=== PATIENT | male | born 1960 | race Caucasian/White ===

== ENCOUNTER 2017-01-18 08:15 | Emergency (ER) | payer OTHER ==
[2017-01-18] MEDS ORDERED: Sodium Chloride 0.9% 1,000 ML PRIMARY IV ONE (08:49)
[2017-01-18] MEDS ORDERED: ONDANSETRON 4 MG/2 ML VIAL IVP ONE (08:49)
[2017-01-18 09:03] LABS: BASOPHILS # (AUTO) 0.03 10*3/UL; BASOPHILS % (AUTO) 0.4 % (0-1); EOSINOPHILS # (AUTO) 0.09 10*3/UL; EOSINOPHILS % (AUTO) 1.3 % (0-8); HEMATOCRIT 50.2 % (42.0-52.0); HEMOGLOBIN 16.8 g/dL (14.0-18.0); MEAN CORPUSCULAR HEMOGLOBIN 27.9 PG (27-31); MEAN CORPUSCULAR HGB CONC 33.5 g/dL (33-37); MEAN CORPUSCULAR VOLUME 83.3 FL (80-90); MEAN PLATELET VOLUME 9.8 FL (7.4-12.2); MONOCYTES # (AUTO) 0.77 10*3/UL (0.3-0.8); MONOCYTES % (AUTO) 11.3 % (5-15); NEUTROPHILS # (AUTO) 4.71 10*3/UL; NEUTROPHILS % (AUTO) 69.1 % (50-80); RED BLOOD COUNT 6.03 10^6/uL (4.70-6.10)
[2017-01-18] MEDS ORDERED: MORPHINE SULFATE 4 MG/1 ML IVP ONE (09:05)
[2017-01-18 09:09] LABS: PLATELET MORPHOLOGY COMMENT NORMAL MORPHOLOGY (NORM); RBC MORPHOLOGY COMMENT NORMAL MORPHOLOGY (NORM); WBC MORPHOLOGY COMMENT NORMAL MORPHOLOGY (NORM)
--- NOTE | 2017-01-18 09:11 | PDOC ---
Nausea/Vomiting/Diarrhea HPI - General Chief Complaint: Nausea / Vomiting / Diarrhea Stated Complaint: ADB/ DIARRHEA Date Seen by Provider: 01/18/17 Time Seen by Provider: 09:06 Source: POSITIVE: Patient, Spouse Exam Limitations: POSITIVE: No limitations Nurse's Notes Reviewed & Considered: Yes - History of Present Illness Initial Comments: This very pleasant 56-year-old male comes in today with chief complaint of nausea vomiting and diarrhea. Patient with history of ulcerative colitis developed vomiting and diarrhea over the weekend. 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 He's had fevers which are subjective in nature, significant chills, and sweats. In addition he is complaining of headache and myalgias. He denies any sore throat, no chest pain or shortness of breath, no hematuria or dysuria. He states his symptoms began after he pain at the ceiling of his son's house. This is more exercise than he is used to. Body Location Affected: REPORTS: Head, Abdomen Timing: REPORTS: Abrupt Duration: <1 week Severity: Moderate Quality: REPORTS: Cramping, "Pain", Throbbing, Tenderness Abdominal Pain Onset Location: REPORTS: Generalized abdomen Abdominal Pain Radiation: REPORTS: Epigastric, Periumbilical Context: REPORTS: Activity Modifying Factors: improves with: Nothing Associated Symptoms: REPORTS: Frequent Vomiting, Diarrhea, Abdominal Pain, Cramping, Epigastric Pain, Periumbilical Pain Similar Symptoms Previously: Yes Recent Care Received: REPORTS: Denies Any Prior Injuries Related to Current Complaint?: No - Patient Home Medications Home Medications: Home Medications Acetaminophen 325 mg PO QID PRN 01/18/17 Aspirin 81 mg PO DAILY 01/18/17 Atorvastatin Calcium 40 mg PO BEDTIME 01/18/17 Gabapentin 300 mg PO TID 01/18/17 Hydroxyzine HCl 50 mg PO BID 01/18/17 Lisinopril 10 mg PO DAILY 01/18/17 Mesalamine [Apriso] 0.375 gm PO QID 01/18/17 Metoprolol Tartrate 12.5 mg PO BID 01/18/17 Pantoprazole Sodium [Protonix] 40 mg PO DAILY 01/18/17 Trazodone HCl 100 mg PO BEDTIME PRN 01/18/17 - Patient Allergies Allergies/Adverse Reactions: Allergies Allergy/AdvReac Type Severity Reaction Status Date / Time No Known Allergies Allergy Verified 01/18/17 08:30 ROS - Limitations ROS Limitations: No Limitations Constitution: REPORTS: Chills, Fever, Diaphoresis, Weakness Cardiovascular: REPORTS: Denies Cardiac Symptoms Respiratory: REPORTS: Denies Resp Symptoms Neurological: REPORTS: Headache Gastrointestinal: REPORTS: Abdominal Pain, Nausea, Vomitting, Diarrhea, Black Stools Endocrine: REPORTS: Fatigue Musculoskeletal: REPORTS: Muscle Aches Genitourinary: REPORTS: Denies Symptoms Eyes: REPORTS: Denies Symptoms ENT: REPORTS: Denies Symptoms Skin: REPORTS: Denies Skin Symptoms Lympathic: REPORTS: Denies Lympathic Symptoms Immunologic: POSITIVE: Denies Symptoms Psychiatric: POSITIVE: Denies Psych Symptoms Nausea/Vomiting/Diarrhea Exam - General Appearance General Appearance: POSITIVE: Alert, Cooperative, No Acute Distress, No Evidence of Trauma - HEENT HEENT: POSITIVE: Head Inspection Nml, Eyes Inspection Nml, Ears Inspection Nml, Nose Inspection Nml, Oral/Dental Inspect. Nml, Pharynx Inspect. Nml, PERRL, EOMI - Neck Neck: POSITIVE: Supple, Normal Inspection, Non Tender - Respiratory Respiratory: POSITIVE: No Respiratory Distress, Breath Sounds Normal, Chest Non- Tender - Cardiovascular Cardiovascular: POSITIVE: Regular Rate and Rhythm, Heart Sounds Normal, Equal Pulses, Strong Pulses - Chest Chest: POSITIVE: Non Tender - Abdomen Abdomen: Soft: (All Quadrants), No Splenomegaly: (All Quadrants), No Hepatomegaly: (All Quadrants), No Guarding: (All Quadrants), No Rebound: (All Quadrants), No Palpable Pulse: (All Quadrants), No Palpabale Mass: (All Quadrants), No Rigidity: (All Quadrants), Tenderness Noted: (LUQ), (RUQ), Hyperactive Bowel Sounds: (All Quadrants) - Back Back: POSITIVE: Normal Inspection - Skin Skin: POSITIVE: Intact, Normal For Race, Warm, Dry, No Rash - Extremities Extremity: Non-Tender: (All Extremities), Normal ROM: (All Extremities), Normal Inspection: (All Extremities) N/V/D Progress - Results Reviewed by me Xrays/CTs/US Reviewed by me: Yes Discussed with Radiologist: Yes Lab Results Reviewed: Yes Lab Results:: Laboratory Results 01/18/17 01/18/17 01/18/17 Range/Units 08:30 08:49 09:27 WBC 6.82 (4.8-10.8) 10^3/uL RBC 6.03 (4.70-6.10) 10^6/uL Hgb 16.8 (14.0-18.0) g/dL Hct 50.2 (42.0-52.0) % MCV 83.3 (80-90) FL MCH 27.9 (27-31) PG MCHC 33.5 (33-37) g/dL RDW Std Deviation 44.8 (39-50) fL RDW Coeff of [place] 14.8 H (11.5-14.5) % Plt Count 252 (140-350) 10*3/uL MPV 9.8 (7.4-12.2) FL Immature Gran % (Auto) 0.3 (0-5) % Neut % (Auto) 69.1 (50-80) % Lymph % (Auto) 17.6 (10-50) % [place] % (Auto) 11.3 (5-15) % Eos % (Auto) 1.3 (0-8) % Baso % (Auto) 0.4 (0-1) % Immature Gran # (Auto) 0.02 10*3/UL Neut # (Auto) 4.71 10*3/UL Lymph # (Auto) 1.20 10*3/uL [place] # (Auto) 0.77 (0.3-0.8) 10*3/UL Eos # (Auto) 0.09 10*3/UL Baso # (Auto) 0.03 10*3/UL WBC Morphology Comment Normal morphology (NORM) Plt Morphology Comment Normal morphology (NORM) RBC Morph Comment Normal morphology (NORM) Sodium 140 (135-145) meq/L Potassium 3.9 (3.8-5.2) meq/L Chloride 106 (98-112) meq/L Carbon Dioxide 24 (23-33) meq/L Anion Gap 10 (5-20) BUN 18 (7-22) mg/dL Creatinine 1.0 (0.70-1.50) mg/dL Estimated GFR > 60 (>60 ml/min/1.73m(2)) BUN/Creatinine Ratio 18.00 (6-20) Glucose 108 (78-110) mg/dL Calculated Osmolality 292.0 (267-292) mOsm/kg Lactic Acid 1.1 (0.70-2.10) MMOL/L Calcium 8.3 L (8.7-10.7) mg/dL Total Bilirubin 0.7 (0.3-1.2) mg/dL AST 47 (21-57) IU/L ALT 43 (21-72) IU/L Alkaline Phosphatase 77 (38-126) IU/L Total Protein 6.1 (6.1-8.0) g/dL Albumin 3.6 (3.5-4.8) g/dL Globulin 2.5 (2.50-4.10) g/dL Albumin/Globulin Ratio 1.40 (1.3-2.0) mg/g Ur Collection Type Clean catch urine Urine Color Yellow Urine Clarity Clear (CLEAR) Urine pH 5.5 (5.0-8.5) Ur Specific [place] 1.020 (1.005-1.030) Urine Protein 30 (NEG) mg/dl Urine Glucose (UA) Negative (NEG) mg/dL Urine Ketones Trace (NEG) Urine Occult Blood Trace-intact H (NEG) Urine Nitrate Negative (NEG) Urine Bilirubin Small (NEG) Urine Urobilinogen 0.2 (0.2) EU/dL Ur Leukocyte Esterase Negative (NEG) Urine RBC 3-5 (NONE) /hpf Urine WBC 3-5 (NONE) Ur Squamous Epith Cells Few (NONE) Ur Renal Epithelial Cell None (NONE) Urine Crystals None Urine Bacteria None (NONE) Urine Casts Few (NONE) Urine Mucus Many (NONE) Urine Trichomonas None (NONE) Urine Yeast None (NONE) Ur Culture Indicated? Culture set - Patient's Progress Pain Medication Addressed: POSITIVE: Yes Re-examine Time: 11:22 Status: POSITIVE: Improved MDM / ED Course: Patient was examined, an IV started, blood drawn and sent to the lab for studies , radiographic examinations were obtained. He had no further episodes of vomiting or diarrhea here in the emergency department. findings: CBC is within normal limits, comprehensive metabolic panel is within normal limits, magnesium is normal, urinalysis shows bilirubin and blood present in his urine but no bacteria no nitrites. CT scan of his abdomen shows no acute intra-abdominal or intrapelvic abnormalities. Assessment: Nausea vomiting and diarrhea, probable gastroenteritis likely viral. Patient has stable labs and stable vitals. No further episodes of vomiting or diarrhea here in the emergency department. Plan: Discharge home, increase fluid intake, Imodium as needed. Follow-up with primary care physician or return here to the emergency department if increased signs or symptoms. - Consult Counseled: POSITIVE: Patient, RE: Lab Results, RE: Radiology Results, RE: DX, RE : Need for F/U Patient Care Time - Estimated PCT Patient Care Time (In Minutes): 30 Vital Signs - Recent Vital Signs Vital Signs: Vital Signs (Last 8 hours) Temp Pulse Resp BP Pulse Ox 01/18/17 08:15 96.8 F 109 H 17 125/94 98 - VS Reviewed Vital Signs Reviewed: Yes Discharge Clinical Impression: Diarrhea, Gastroenteritis, Nausea and vomiting Discharge Disposition: Discharged to Home Condition: Stable Patient Instructions Given at Discharge: Gastroenteritis (ED), Acute Nausea and Vomiting (ED)
[2017-01-18 09:24] LABS: BLOOD UREA NITROGEN 18 mg/dL (7-22); CALCIUM 8.3 mg/dL (8.7-10.7); EST GLOMERULAR FILTRATION > 60 (>60 ml/min/1.73m(2)); SERUM ALBUMIN 3.6 g/dL (3.5-4.8)
[2017-01-18 09:32] LABS: BILIRUBIN,URINE SMALL (NEG); CLARITY,URINE CLEAR (CLEAR); COLOR,URINE YELLOW; GLUCOSE, URINE (UA) NEGATIVE (NEG); NITRATE,URINE NEGATIVE (NEG); OCCULT BLOOD,URINE Trace-intact (NEG); PH,URINE 5.5 (5.0-8.5); PROTEIN,URINE 30 mg/dl (NEG); UROBILINOGEN,URINE 0.2 EU/dL (0.2)
[2017-01-18 09:49] LABS: SQUAMOUS EPITHELIAL CELL,UR FEW; URINE SAMPLE TYPE CLEAN CATCH URINE
[2017-01-18 09:50] LABS: URINE CASTS FEW
[2017-01-18 10:16] VITALS: RESP 17; TEMP 96.8
--- NOTE | 2017-01-18 11:14 | DI ---
CT ABD W/WO CN AND PELVIS W/W0,01/18/2017 7:47 AM: Clinical History: Abdominal pain, GI bleed and history of ulcerative colitis. Previous Exam: None at this facility. Findings: Multiple helically acquired CT images are obtained through the abdomen and pelvis following the intra venous administration of 85 cc of Isovue 300, and demonstrate clear lung bases. The liver, gallbladder, spleen, adrenals, pancreas and kidneys are unremarkable. The appendix is with in normal limits. The urinary bladder is unremarkable. Evaluation of the colon reveals no obvious abnormality. Small bowel loops are unremarkable. There is no free air nor free fluid. There is no lymphadenopathy. The stomach and small bowel loops are grossly normal as well. Mild degenerative changes of the posterior articulating facets are seen. The major vascular structures are unremarkable. Impression: 1. No acute intra-abdominal pathology. 2. No visible GI bleed.
== END 2017-01-18 11:50 | disposition home or self-care (01) ==
LOC: ER 08:15
DX: K52.9 Noninfective gastroenteritis and colitis, unspecified (principal); R19.7 Diarrhea, unspecified; R51 Headache; R50.9 Fever, unspecified; M79.1 Myalgia; R10.13 Epigastric pain; R10.33 Periumbilical pain; R11.2 Nausea with vomiting, unspecified
CPT/HCPCS: 36415; 74177; 80053; 81001; 81003; 83605; 85025; 87088; 96361; 96374; 96375; 99283; J2270; J2405; J7030